=== PATIENT | female | born 1965 | race Caucasian/White ===

== ENCOUNTER 2016-10-21 11:40 | Day surgery (SDC) | payer BC ==
[~2016-10-21] VITALS: Ht 170.2 cm; Wt 96.8 kg
[2016-10-21] VITALS (10 sets, daily range): BP systolic 125–147; BP diastolic 71–85; PULSE 73–87; TEMP 98.3
[2016-10-21 12:29] LABS: HEMATOCRIT 39.8 % (37.0-47.0); HEMOGLOBIN 13.3 g/dl (12.5-16.0); MEAN CELL VOLUME 83 fl (80.0-100.0); MEAN CORPUSCULAR HEMOGLOBIN 28 pg (27.0-31.0); MEAN CORPUSCULAR HGB CONC 33 g/dl (33.0-37.0); MEAN PLATELET VOLUME 9.5 fl (7.4-10.4); PLATELET COUNT 338 K/mm3 (130-400); RED BLOOD COUNT 4.77 M/mm3 (4.10-5.30); REDCELL DISTRIBUTION WIDTH-CV 12.1 % (11.5-14.5); WHITE BLOOD COUNT 14.3 K/mm3 (4.8-10.8)
[2016-10-21 12:32] LABS: INR 1.1 (0.8-3.0); PROTHROMBIN TIME 11.7 SECONDS (9.7-12.8)
[2016-10-21 12:41] LABS: CALCIUM 9.7 mg/dL (8.4-10.2); CREATININE, serum 0.58 mg/dL (0.52-1.25); POTASSIUM 4.3 mmol/L (3.4-5.0)
[2016-10-21] MEDS ORDERED: LIPITOR 80MG80 MG PO (13:21)
[2016-10-21] MEDS ORDERED: SINGULAIR 110 MG/TAB PO (13:22)
[2016-10-21] MEDS ORDERED: PULMICORT0.5 MG/2 M IH (13:22)
[2016-10-21] MEDS ORDERED: BRILINTA90 MG PO (13:23)
[2016-10-21] MEDS ORDERED: LEXAPRO 10MG10 MG PO (13:25)
[2016-10-21] MEDS ORDERED: COZAAR 25MG25 MG/TAB PO (13:25)
[2016-10-21] MEDS ORDERED: PRILOSEC 20MG20 MG PO (13:26)
[2016-10-21] MEDS ORDERED: LANTUS100 U/ML SQ (13:26)
[2016-10-21] MEDS ORDERED: ASPIRIN 81M81 MG/TA2 PO (13:26)
[2016-10-21] MEDS ORDERED: LASIX 20MG TABL20 MG PO (13:27)
[2016-10-21] MEDS ORDERED: SYNTHROID0.1 MG/TAB PO (13:27)
[2016-10-21] MEDS ORDERED: GLUCOPHAGE850 MG/TAB PO (13:28)
[2016-10-21] MEDS ORDERED: GLUCOPHAGE500 MG/TAB PO (13:28)
== END 2016-10-21 17:28 | disposition home or self-care (01) ==
LOC: COL.CAR 11:40
PROVIDERS: Internal Medicine Interventional Cardiology
DX: I25.9 Chronic ischemic heart disease, unspecified (principal); R94.39 Abnormal result of other cardiovascular function study; G45.0 Vertebro-basilar artery syndrome; I10 Essential (primary) hypertension; M79.604 Pain in right leg; M79.605 Pain in left leg; L30.9 Dermatitis, unspecified; E11.9 Type 2 diabetes mellitus without complications; Z79.4 Long term (current) use of insulin; E03.9 Hypothyroidism, unspecified; E78.5 Hyperlipidemia, unspecified; Z90.49 Acquired absence of other specified parts of digestive tract; Z82.49 Family history of ischemic heart disease and other diseases of the circulatory system
CPT/HCPCS: C1760; C1894; J1200; J2250; J2930; J3010; Q9967

== ENCOUNTER → 2016-11-11 | Outpatient (CLI) | payer BC ==
[~2016-11-11] MED LIST: ASPIRIN 81M81 MG/TA2 PO; BRILINTA90 MG PO; COZAAR 25MG25 MG/TAB PO; GLUCOPHAGE500 MG/TAB PO; GLUCOPHAGE850 MG/TAB PO; LANTUS100 U/ML SQ; LASIX 20MG TABL20 MG PO; LEXAPRO 10MG10 MG PO; LIPITOR 80MG80 MG PO; PRILOSEC 20MG20 MG PO; PULMICORT0.5 MG/2 M IH; SINGULAIR 110 MG/TAB PO; SYNTHROID0.1 MG/TAB PO
== END ==
LOC: COL.RAD 11:22
DX: I77.810 Thoracic aortic ectasia (principal); R07.89 Other chest pain
CPT/HCPCS: Q9967

== ENCOUNTER → 2017-04-13 | Outpatient (CLI) | payer BC ==
[2017-04-13 16:35] LABS: HEMATOCRIT 38.9 % (37.0-47.0); HEMOGLOBIN 12.5 g/dl (12.5-16.0); MEAN CELL VOLUME 81 fl (80.0-100.0); MEAN CORPUSCULAR HEMOGLOBIN 26 pg (27.0-31.0); MEAN CORPUSCULAR HGB CONC 32 g/dl (33.0-37.0); PLATELET COUNT 321 K/mm3 (130-400); RED BLOOD COUNT 4.78 M/mm3 (4.10-5.30); REDCELL DISTRIBUTION WIDTH-CV 13.9 % (11.5-14.5)
[2017-04-13 16:54] LABS: ALANINE AMINOTRANSFERASE 26 U/L (9-52); ALBUMIN 4.8 gm/dL (3.5-5.0); ALKALINE PHOSPHATASE 139 U/L (50-136); AMYLASE 73 U/L (30-110); ANION GAP 12 mmol/L (7-16); AST,SGOT 26 U/L (15-37); BILIRUBIN,TOTAL 0.4 mg/dL (0.0-1.0); BLOOD UREA NITROGEN 13 mg/dL (7-17); CALCIUM 9.6 mg/dL (8.4-10.2); CARBON DIOXIDE 28 mmol/L (22-30); CHLORIDE 99 mmol/L (98-107); CREATININE, serum 0.61 mg/dL (0.52-1.25); GLUCOSE 120 mg/dL (74-106); LIPASE 120 U/L (23-300); POTASSIUM 4.8 mmol/L (3.4-5.0); SODIUM 139 mmol/L (137-145); TOTAL PROTEIN 8.1 gm/dL (6.4-8.2)
[2017-04-13 17:03] LABS: TROPONIN-I < 0.012 ng/mL (0.000-0.034)
[2017-04-13 17:19] LABS: ERYTHROCYTE SEDIMENTATION RATE 25 mm/hr (0-30)
== END ==
LOC: COL.LAB 15:47
PROVIDERS: Internal Medicine Interventional Cardiology
DX: M94.0 Chondrocostal junction syndrome [Tietze] (principal); I20.9 Angina pectoris, unspecified; Z95.1 Presence of aortocoronary bypass graft; Z98.890 Other specified postprocedural states

== ENCOUNTER 2018-04-23 11:59 | Day surgery (SDC) | payer BC ==
[~2018-04-23] VITALS: Ht 170.3 cm; Wt 97.7 kg
[2018-04-23] VITALS (10 sets, daily range): BP systolic 104–128; BP diastolic 70–90; PULSE 92–105; TEMP 98.4
[~2018-04-23 11:59] MED LIST changes: +GLUCOPHAGE1000 MG PO; -GLUCOPHAGE500 MG/TAB PO; +LANTUS SOLOS100 U/ML SQ; -LANTUS100 U/ML SQ
[2018-04-23 13:05] LABS: HEMATOCRIT 41.1 % (37.0-47.0); HEMOGLOBIN 13.6 g/dl (12.5-16.0); MEAN CELL VOLUME 84 fl (80.0-100.0); MEAN CORPUSCULAR HEMOGLOBIN 28 pg (27.0-31.0); MEAN CORPUSCULAR HGB CONC 33 g/dl (33.0-37.0); MEAN PLATELET VOLUME 9.3 fl (7.4-10.4); PLATELET COUNT 363 K/mm3 (130-400); RED BLOOD COUNT 4.92 M/mm3 (4.10-5.30); REDCELL DISTRIBUTION WIDTH-CV 12.8 % (11.5-14.5)
[2018-04-23 13:17] LABS: CALCIUM 10.3 mg/dL (8.4-10.2); CREATININE, serum 0.6 mg/dL (0.52-1.25); POTASSIUM 4.8 mmol/L (3.4-5.0)
[2018-04-23] MEDS ORDERED: TOPROL XL 50MG50 MG PO (13:17)
[2018-04-23] MEDS ORDERED: IMDUR 60MG60 MG/TAB PO (13:18)
[2018-04-23 13:19] LABS: INR 1.1 (0.8-3.0)
[2018-04-23] MEDS ORDERED: PLAVIX 75MG TAB75 MG PO (13:21)
[2018-04-23] MEDS ORDERED: JANUVIA 100MG100 MG PO (13:22)
[2018-04-23] MEDS ORDERED: ZANTAC 150MG T150 MG PO (13:23)
[2018-04-23] MEDS ORDERED: ALLEGRA 180MG180 MG PO (13:24)
[2018-04-23] MEDS ORDERED: CENTRUM SILVER1 CTB PO (13:25)
[2018-04-23] MEDS ORDERED: MEVACOR40 MG PO (13:30)
[2018-04-23] MEDS ORDERED: NITROSTAT0.4 MG/TAB SL (13:31)
[2018-04-23] MEDS ORDERED: TRULICITY1.5 MG/0.5 SQ (13:32)
[2018-04-23] MEDS ORDERED: NIZORAL SHAMPO120 M1 TP (13:34)
[2018-04-23] MEDS ORDERED: KENALOG 60 ML60 M1 TP (13:36)
--- NOTE | 2018-04-23 15:42 | NUR ---
ALL MEDICATIONS GIVEN WITH VERBAL ORDER AND READBACK WITH MD. SEE MERGE FOR ALL MEDICATION ADMIN TIMES. SEE MERGE FOR ALL RASS ASSESSMENTS DURING AND POST PROCEDURE. PRE MEDICATED FOR IODINE ALLERGY.
--- NOTE | 2018-04-23 16:55 | NUR ---
Patient arrives from liaison inspection laboratory assistant by bed, accompanied by Mariaelena liaison inspection laboratory assistant RN. Patient is alert and oriented. Denies chest pain or shortness of breath. Radial and pedal pulses palpable 2+. Right radial puncture site visualized through TR band, which is inflated to 13 cc per report; scant drainage noted, but no active bleeding present. Will continue to closely monitor.
--- NOTE | 2018-04-23 20:10 | NUR ---
Patient discharge instructions reviewed. All air released from TR band and TR band removed, replaced with gauze and bandage. No oozing or bleeding noted. Pulses palpable 2+ radial and pedal. Patient denies any pain or shortness of breath. No concerns noted at this time. All discharge paperwork reviewed with patient. Patient verbalizes understanding and agreement. Emphasized cardiac catheterization discharge information, patient verbalizes understanding and agreement to all presented information. Patient escorted to exit by JOVAN Brown. Right hand IV removed before discharge. Patient's mother accompanies patient.
== END 2018-04-23 20:10 | disposition home or self-care (01) ==
LOC: COL.CAR 11:59
PROVIDERS: Internal Medicine Cardiovascular Disease
DX: I25.119 Atherosclerotic heart disease of native coronary artery with unspecified angina pectoris (principal); I25.709 Atherosclerosis of coronary artery bypass graft(s), unspecified, with unspecified angina pectoris; I10 Essential (primary) hypertension; E11.9 Type 2 diabetes mellitus without complications; Z79.4 Long term (current) use of insulin; E03.9 Hypothyroidism, unspecified; Z79.899 Other long term (current) drug therapy; Z82.49 Family history of ischemic heart disease and other diseases of the circulatory system; Z83.3 Family history of diabetes mellitus; Z87.891 Personal history of nicotine dependence; Z91.041 Radiographic dye allergy status; K21.9 Gastro-esophageal reflux disease without esophagitis; E78.5 Hyperlipidemia, unspecified; Z98.51 Tubal ligation status; Z90.49 Acquired absence of other specified parts of digestive tract
CPT/HCPCS: C1887; C1894; J1200; J1644; J2250; J3010; J7512; Q9967

== ENCOUNTER 2019-11-14 13:46 | Observation (INO) | payer BC ==
[2019-11-14] VITALS (123 sets, daily range): BP systolic 136–163; BP diastolic 77–88; PULSE 71–92; TEMP 97.9–98.7; O2SAT 94–99
[~2019-11-14] VITALS: Ht 180.3 cm; Wt 101.4 kg
[~2019-11-14 13:46] MED LIST changes: +ALLEGRA 180MG180 MG PO; +CENTRUM SILVER1 CTB PO; +IMDUR 60MG60 MG/TAB PO; +JANUVIA 100MG100 MG PO; +KENALOG 60 ML60 M1 TP; +MEVACOR40 MG PO; +NITROSTAT0.4 MG/TAB SL; +NIZORAL SHAMPO120 M1 TP; +PLAVIX 75MG TAB75 MG PO; +TOPROL XL 50MG50 MG PO; +TRULICITY1.5 MG/0.5 SQ; +ZANTAC 150MG T150 MG PO
--- NOTE | 2019-11-14 15:00 | NUR ---
report given to desirae downing.
[2019-11-14 15:08] LABS: BASO # 0.1 (0.0-0.2); BASO % 0.6 % (0.0-2.0); EOS # 0.6 (0.0-0.7); EOS % 7.9 % (0-4.0); GRAN # 4.2 (1.4-6.5); GRAN % 52.3 % (42.2-75.2); HEMATOCRIT 39.5 % (37.0-47.0); LYMPH # 2.6 (1.2-3.4); LYMPH % 32.5 % (20.0-51.0); MEAN CELL VOLUME 85 fl (80.0-100.0); MEAN CORPUSCULAR HEMOGLOBIN 28 pg (27.0-31.0); MEAN CORPUSCULAR HGB CONC 33 g/dl (33.0-37.0); MEAN PLATELET VOLUME 9.3 fl (7.4-10.4); MONO # 0.5 (0.1-0.6); MONO % 6.1 % (1.7-9.3); PLATELET COUNT 263 K/mm3 (130-400); RED BLOOD COUNT 4.65 M/mm3 (4.10-5.30); REDCELL DISTRIBUTION WIDTH-CV 12.9 % (11.5-14.5)
[2019-11-14 15:17] LABS: ALBUMIN 4.6 gm/dL (3.5-5.0); BILIRUBIN,TOTAL 0.5 mg/dL (0.0-1.0); CALCIUM 9.7 mg/dL (8.4-10.2); CREATININE, serum 0.55 (0.52-1.25); POTASSIUM 4.3 mmol/L (3.4-5.0)
[2019-11-14] MEDS ORDERED: 00186-0372-20 IH (15:17)
[2019-11-14] MEDS ORDERED: GLUCOTROL XL2.5 MG PO (15:19)
[2019-11-14 15:27] LABS: COLLECTION METHOD CLEAN CATCH
[2019-11-14 15:45] LABS: MUCOUS Present /lpf; PH 5 (5-8); SQUAMOUS EPITHELIAL 0-2 /hpf; URINE APPEARANCE Clear; URINE BACTERIA None Seen /hpf; URINE BILIRUBIN Negative (NEGATIVE); URINE BLOOD 1+ (NEGATIVE); URINE COLOR Yellow; URINE GLUCOSE Negative (NEGATIVE); URINE KETONE Negative (NEGATIVE); URINE LEUKOCYTE ESTERASE Negative (NEGATIVE); URINE NITRATE Negative (NEGATIVE); URINE PROTEIN(semi-quant) Negative (NEGATIVE); URINE RBC 0-2 /hpf; URINE UROBILINOGEN Negative (NEGATIVE)
[2019-11-14 15:48] LABS: CHOLESTEROL RISK RATIO 3.3
[2019-11-14] MEDS ORDERED: LASIX 20MG TABL20 MG PO (16:04)
[2019-11-14 16:19] LABS: TSH w REFLEX 0.988 uIU/mL (0.465-4.680)
--- NOTE | 2019-11-14 19:20 | NUR ---
Patient brought up to medical room 307. JOVAN Yu at bedside upon arrival.
--- NOTE | 2019-11-14 22:15 | NUR ---
Pt from ICU via wheelchair, gait is steady and up with assistance. pt denies chest pain, reports headache rated a 7 out of 10. gave tylenol prn documented in APR. assessment completed. blood pressure in the 130s/80s. no other needs at this time, will continue to monitor.
[2019-11-15 03:39] VITALS: BP 128/80; PULSE 68; TEMP 97.5
--- NOTE | 2019-11-15 05:13 | NUR ---
pt sleeping in bed most of the night, called for any needs. blood pressure stable throughout the night, no fever. pt reported a headache during the night, gave tylenol that pt stated helped relieve pain. call light within reach, no other needs at this time.
[2019-11-15 07:15] VITALS: BP 149/83; PULSE 78; TEMP 97
--- NOTE | 2019-11-15 10:18 | NUR ---
BRIDGER met with the patient to discuss discharge plan. The patient lives alone in [place]. Her , Henry, is listed as next of kin. The patient states that her and Henry are now and in the process of getting a divorce. She reports independence with ADLs and does not have any DME. The patient's PCP is Dr. Jeff Sánchez and she receives her medications at [facility]. She reports occasional difficulties affording her meds. The patient does not have a DPOA-HC completed, but she was interested in obtaining a DPOA-HC form. BRIDGER provided. The patient states that she has three children: Mandeep, Nish, and Petey. The patient plans to return home upon discharge. No additional needs at this time.
[2019-11-15 11:24] VITALS: BP 139/79; PULSE 93; TEMP 98.1
[2019-11-15] MEDS ORDERED: PRINIVIL10 MG PO (12:13)
--- NOTE | 2019-11-15 14:20 | NUR ---
Pt discharged to home, discussed discharge packet with Pt. IV discontinued. Escorted Pt to entrance, Pt left in own vehicle.
== END 2019-11-15 14:10 | disposition home or self-care (01) ==
LOC: ICU 13:46 → MEDICAL 15:55 → ICU 16:14 → MEDICAL 19:14
PROVIDERS: ADMIT Internal Medicine
DX: I16.0 Hypertensive urgency (principal); R51.9 Headache, unspecified; E03.9 Hypothyroidism, unspecified; I25.119 Atherosclerotic heart disease of native coronary artery with unspecified angina pectoris; E78.5 Hyperlipidemia, unspecified; Z20.828 Contact with and (suspected) exposure to other viral communicable diseases; E11.9 Type 2 diabetes mellitus without complications; Z88.3 Allergy status to other anti-infective agents; Z88.2 Allergy status to sulfonamides; Z88.8 Allergy status to other drugs, medicaments and biological substances; Z79.82 Long term (current) use of aspirin; Z79.84 Long term (current) use of oral hypoglycemic drugs; I08.3 Combined rheumatic disorders of mitral, aortic and tricuspid valves; Z95.1 Presence of aortocoronary bypass graft; K21.9 Gastro-esophageal reflux disease without esophagitis; J30.2 Other seasonal allergic rhinitis
CPT/HCPCS: 99239; C9113; G0008; J1815